=== PATIENT | male | born 1960 | race Caucasian/White ===

== ENCOUNTER 2019-05-16 13:39 | Emergency (ER) | payer BC, OTHER ==
[2019-05-16 14:00] VITALS: BP 162/96
--- NOTE | 2019-05-16 14:33 | ED ---
Head Injury - HPI Summary HPI Summary: 59-year-old male who is not on anticoagulation therapy reports the emergency department today after a mechanical fall this afternoon which resulted in him sustaining a head injury. He states he slipped on the bottom step and fell and uses hands to break his fall but still sustained a minor injury to the left side of his face superior to his eye. He states she has 1 out of 10 pain at this moment which is located above his left eye. He denies any changes in vision, headache, neck pain, dental pain, bleeding, difficulty hearing, syncope , loss of consciousness, fever, difficulty with gait, neurological deficit.. He denies any past medical history of polycystic kidney syndrome, subarachnoid hemorrhage, intracranial hemorrhage. He denies chest pain, abdominal pain, and urination, shortness of breath. - History Of Current Complaint Chief Complaint: EDFall Stated Complaint: FALL- HEAD INJURY PER PT Time Seen by Provider: 05/16/19 14:32 Hx Obtained From: Patient Mechanism Of Injury: Blunt Trauma, Fall From A Standing Position Onset/Duration: Started Hours Ago Onset of Pain: Immediate Severity Currently: Mild Severity Initially: Mild Pain Intensity: 1 Pain Scale Used: 0-10 Numeric Location of Head Injury: Frontal Character: Dull Alleviating Factor(s): Rest - Risk Factors SDH Risk Factor: Male - Allergies/Home Medications Allergies/Adverse Reactions: Allergies Allergy/AdvReac Type Severity Reaction Status Date / Time amoxicillin Allergy See Comment Verified 05/16/19 14:52 PMH/Surg Hx/FS Hx/Imm Hx Cardiovascular History: Denies: Hx Aneurysm History: Denies: Hx Dialysis Sensory History: Reports: Hx Contacts or Glasses Opthamlomology History: Reports: Hx Contacts or Glasses Infectious Disease History: No Infectious Disease History: Denies: Hx Hepatitis, Hx Human Immunodeficiency Virus (HIV), Traveled Outside the [place] in Last 30 Days Review of Systems Constitutional: Negative Eyes: Negative ENT: Negative Cardiovascular: Negative Respiratory: Negative Gastrointestinal: Negative Musculoskeletal: Negative Positive: Bruising Neurological: Negative Psychological: Normal All Other Systems Reviewed And Are Negative: Yes Physical Exam Triage Information Reviewed: Yes Vital Signs On Initial Exam: Initial Vitals Temp Pulse Resp BP Pulse Ox 97.9 F 90 18 162/96 94 05/16/19 13:56 05/16/19 13:56 05/16/19 13:56 05/16/19 13:56 05/16/19 13:56 Vital Signs Reviewed: Yes Appearance: Positive: Well-Appearing, No Pain Distress, Well-Nourished Skin: Positive: Warm, Skin Color Reflects Adequate Perfusion Head/Face: Positive: Other - Small abrasion superior to the left orbit which is about 4 cm centimeters in diameter with mild ecchymosis but no signs of bleeding. No evidence of laceration. There is a small superficial scratch which is about 3 cm which bisects his left eyebrow which is likely sustained from the nose piece of his glasses during the fall. Eyes: Positive: EOMI, NADIA ENT: Positive: Hearing grossly normal, Pharynx normal, TMs normal, Uvula midline , Other - Normal evidence of dental or tongue trauma sustained during the fall. No evidence of hemotympanum. Dental: Negative: Percussion Tenderness @ Neck: Positive: Nontender, Other: - No midline tenderness of the cervical spine Respiratory/Lung Sounds: Positive: Clear to Auscultation, Breath Sounds Present Cardiovascular: Positive: RRR, S1, S2 Musculoskeletal: Positive: Strength/ROM Intact Neurological: Positive: Sensory/Motor Intact, Alert, Oriented to Person Place, Time, Normal Gait, Finger to Nose, Facial Symmetry, Speech Normal. Negative: Slurred Speech Psychiatric: Positive: Normal AVPU Assessment: Alert Procedures - Sedation Patient Received Moderate/Deep Sedation with Procedure: No Diagnostics - Vital Signs Vital Signs Temp Pulse Resp BP Pulse Ox 05/16/19 13:56 97.9 F 90 18 162/96 94 - Laboratory Lab Statement: Any lab studies that have been ordered have been reviewed, and results considered in the medical decision making process. Head Injury Course/Dx Course Of Treatment: Patient was evaluated in the emergency department today after sustaining a fall from a height of standing. The patient was seen and examined. It was determined no laboratory or diagnostic imaging studies were required for the workup of this patient. After a neurological exam which showed no deficits as well as the physical exam which showed no signs of significant trauma he was informed there is no acute medical emergency requiring intervention at this time such as intracranial hemorrhage. He was told he may develop a headache as he may have sustained a mild concussion however, if he was develops any new or worsening symptoms to return to the emergency Department immediately. He was told to return to activity as tolerated. He was told to follow up with his primary care provider in 2-3 days for further evaluation of his fall. Patient agreed with this plan. - Diagnoses Differential Diagnosis/HQI/PQRI: Cerebral Contusion, Cervical Sprain, Contusion , Intracranial Bleed, Orbital Fracture, Skull Fracture Provider Diagnoses: Fall (on) (from) other stairs and steps, initial encounter, Abrasion of face Discharge ED - Sign-Out/Discharge Documenting (check all that apply): Patient Departure - Discharge Plan Condition: Stable Disposition: HOME Patient Education Materials: Head Injury (ED) Referrals: Fred Cassidy MD [Primary Care Provider] - 2 Days Additional Instructions: You were seen in the emergency department today due to a fall you sustained this afternoon. After evaluation it was found nothing serious was occurring which required immediate medical intervention. You may develop symptoms of a headache due to a possible mild concussion however, if you develop severe or worsening symptoms please return to the emergency Department immediately. Return activity as tolerated. You may take ibuprofen 600 mg every 6 hours for pain as needed. - Billing Disposition and Condition Condition: STABLE Disposition: Home
== END 2019-05-16 14:57 | disposition home or self-care (01) ==
LOC: ED 13:39
DX: S00.81XA Abrasion of other part of head, initial encounter (principal); W10.8XXA Fall (on) (from) other stairs and steps, initial encounter; Y92.9 Unspecified place or not applicable; Z88.0 Allergy status to penicillin
CPT/HCPCS: 99281